=== PATIENT | female | born 1975 | race Caucasian/White ===

== ENCOUNTER → 2017-11-07 | Outpatient (CLI) | payer OTHER ==
[~2017-11-07] MED LIST: MULT-65 PO
[2017-11-07 08:56] LABS: HEMATOCRIT 38.6 % (35.0-46.0); MEAN CELL VOLUME 91.9 FL (80.0-100.0); MEAN CORPUSCULAR HGB CONC 33.7 % (32.0-36.0); MEAN PLATELET VOLUME 9.4 FL (7.0-11.0); PLATELET COUNT 131 TH/MM3 (150-450); RED BLOOD COUNT 4.19 MIL/MM3 (4.00-5.30); RED CELL DISTRIBUTION WIDTH 13.7 % (11.6-17.2); WHITE BLOOD COUNT 4.9 TH/MM3 (4.0-11.0)
--- NOTE | 2017-11-07 09:01 | MH ---
cc: Dashawn Zapien MD DATE OF ADMISSION: 11/07/2017 HISTORY OF PRESENT ILLNESS: This is a 42-year-old female with nasal obstruction and chronic sinusitis in addition to chronic otitis for open septal reconstruction, bilateral inferior turbinates, bilateral maxillary antrostomy and myringotomy and tube placement. PAST MEDICAL HISTORY: Unremarkable. PAST SURGICAL HISTORY: Unremarkable. REVIEW OF SYSTEMS, FAMILY HISTORY AND SOCIAL HISTORY: Unremarkable. PHYSICAL EXAMINATION: GENERAL: A well-appearing patient in no acute distress noted. HEENT: Reveals septal deviation, turbinate hypertrophy, retracted ear drums. LUNGS: Clear. HEART: Regular rate and rhythm. ABDOMEN: Soft and nontender. EXTREMITIES: Without cyanosis, clubbing, or edema. NEUROLOGIC: Alert and oriented. Nonfocal neurologic exam. IMPRESSION: A patient with chronic otitis, chronic sinusitis, nasal obstruction for surgical therapy. Instructed method of surgery and possible complications including anesthetic complication, cardiac difficulty, pulmonary difficulty, stroke, coma or even . Surgical complications of bleeding, infection, risk of transfusion, injury to the middle ear cavity, discussed the need for neuro-otologic evaluation and treatment. The patient appeared to agree, accept and understand the above mentioned risks and benefits. In addition, no guarantees or warranties regarding outcome were given. We will therefore proceed with surgery. MD NATALIA Aparicio/DANYA , 08:42 AM , 09:00 AM
== END ==
LOC: CPRE 08:19
PROVIDERS: ATTEND Specialist
DX: Z01.812 Encounter for preprocedural laboratory examination (principal); J34.2 Deviated nasal septum; J34.3 Hypertrophy of nasal turbinates; J32.0 Chronic maxillary sinusitis
CPT/HCPCS: 36415; 85027

== ENCOUNTER → 2017-11-08 | Day surgery (SDC) | payer OTHER ==
[~2017-11-08] VITALS: Ht 157.5 cm; Wt 56.1 kg
[~2017-11-08] MED LIST changes: +*morphine SULFATE 8 MG/ML PERIprocedure ONLY ONE; +ACETAMINOPHEN 1000 MG/100 ML 100 ML IV ONE; +ACETAMINOPHEN/HYDROcodone 325 MG/7.5 MG TAB PO PRN; +CHLORHEXIDINE GLUCONATE 2 % 1 PACK (2 CLOTHS) TOPICAL PRN; +DEXAMETHASONE SOD PHOS 4 MG/ML VIAL IV ONE; +DO NOT ADM ANY ANTICOAGULANT DRUGS PRN; +EPINEPHrine HCL (1:1000) 30 MG/30 ML VIAL ONE; +GLYCOPYRROLATE 1 MG/5 ML SYRINGE IV PUSH ONE; +LACTATED RINGER'S 1000 ML IV PRN; +LIDOCAINE 0.5%/EPINEPHrine 1:200,000 SOLN 50 ML VIAL ONE; +LIDOCAINE HCL 1% PF 5 ML SYRINGE OTHER ONE; +METOPROLOL TARTRATE 25 MG TAB PO PRN; +MORPHINE SULFATE 4 MG/ML INJ IV PRN; +NEOSTIGMINE 5 MG/5 ML SYRINGE IV PUSH ONE; +OFLOXACIN 0.3% OPTH SOLN 5 ML BTL ONE; +ONDANSETRON HCL 4 MG/2 ML VIAL IV ONE; +ONDANSETRON HCL 4 MG/2 ML VIAL IV PUSH PRN; +OXYMETAZOLINE HCL 0.05% 15 ML NASAL SPRAY ONE; +POVIDONE IODINE 5% (ANTISEPSIS KIT) 4 APPLICATIONS EACH NARE PRN; +PROPOFOL 200 MG/20 ML AMP IV ONE; +ROCURONIUM INJ 50 MG/5 ML SYRINGE IV PUSH ONE; +SODIUM CHLORID 0.9% 500 ML IV PRN
[2017-11-08 10:15] VITALS: BP 93/54; PULSE 67; RESP 20; TEMP 97.8; O2SAT 97
--- NOTE | 2017-11-08 13:03 | MP ---
cc: Dashawn Zapien MD DATE OF OPERATION: 11/08/2017 PREOPERATIVE DIAGNOSES: 1. Nasal obstruction. 2. Chronic sinusitis. 3. Chronic otitis. POSTOPERATIVE DIAGNOSES: 1. Nasal obstruction. 2. Chronic sinusitis. 3. Chronic otitis. PROCEDURE PERFORMED: Open septal reconstruction, bilateral inferior turbinectomy, submucous resection and bilateral maxillary antrostomy endoscopic along with right myringotomy and T-tube placement. ANESTHESIA: General. ESTIMATED BLOOD LOSS: 50 mL. COMPLICATIONS: No complications. OPERATING SURGEON: Dr. Zapien. OPERATION FOLLOWS: Prepped and draped in the usual fashion. 1% Xylocaine with 1:100,000 epinephrine injected into the nasal septum, inferior turbinates, middle meatus bilaterally. 1:1000 adrenaline-soaked pledgets were placed in the nose and removed after approximately 3 minutes. Under microscopic visualization, an anterior inferior radial myringotomy incision made, fluid suctioned from the middle ear cavity. On the right side, a T-tube tympanostomy tube was placed in good position along with ofloxacin. Anterior inferior radial myringotomy incision made on the left side of the nose. Mucoperichondrial incision elevated and mucoperichondrial flap elevated. Incision in cartilage was made and opposite flap elevated. Cartilage and bone isolated and removed with Joseph forceps, significantly improving the nasal airway and reducing the nasal fracture. Once this was achieved, the mucoperichondrial flap was reapproximated and sutured in place with interrupted chromic sutures. Under endoscopic visualization an uncinectomy was performed enlarging the middle meatus on both sides under endoscopic visualization and the natural antrostomy identified and enlarged with the microdebrider under endoscopic visualization. Using the Coblator with the turbinate probe, submucosal removal of the turbinate was performed. Multiple insertions of the turbinate probe were performed under direct and endoscopic visualization on the left and right side significantly improving the nasal airway and preserving mucosa. No active bleeding was noted. The patient tolerated the procedure well. MD NATALIA Aparicio/DONALD , 12:40 PM , 01:02 PM
== END | disposition home or self-care (01) ==
LOC: HSDC 06:36
PROVIDERS: ATTEND Specialist
DX: J34.2 Deviated nasal septum (principal); J34.3 Hypertrophy of nasal turbinates; H66.93 Otitis media, unspecified, bilateral; J32.0 Chronic maxillary sinusitis; S02.2XXA Fracture of nasal bones, initial encounter for closed fracture
CPT/HCPCS: 00160; 21335; 30140; 31256; 69436; J0131; J0171; J1100; J2270; J2405; J2710; J3010; J7120